=== PATIENT | male | born 1960 | race Hispanic/Latino ===

== ENCOUNTER 2018-10-23 10:09 | Emergency (ER) | payer SELFPAY ==
[2018-10-23 12:07] LABS: Absolute Lymphocytes (CBC) 1.5 K/uL (0.7-4.9); Absolute Monocytes 0.7 K/uL (0.1-1.3); Absolute Neutrophil 9.3 K/uL (1.8-8.0); Basophils % 0.4 % (0-1.3); Eosinophils % 1.5 % (0-4.4); Hematocrit 39.2 % (39.6-49.0); Lymphocytes % 12.5 % (15.3-44.8); MPV 8.1 fL (7.6-11.3); Monocytes % 5.9 % (3.3-12.3); RBC Red Blood Cell Count 4.37 M/uL (4.33-5.43)
[2018-10-23 12:12] LABS: Urine Blood 3+ (NEG); Urine Glucose NEGATIVE (NEG); Urine Protein NEGATIVE (NEG); Urine pH 5.5 (5.0-7.0)
[2018-10-23 12:12] LABS: Urine Bacteria <20 /HPF (NONE SEEN); Urine Culture Reflex Order REFLEXED; Urine Mucus 1+ /HPF (NONE SEEN); Urine RBC 20-50 /HPF (NONE SEEN)
[2018-10-23 12:26] LABS: Albumin 3.3 g/dL (3.4-5.0); Bilirubin Direct 0.1 mg/dL (0-0.2); Bilirubin Total 0.5 mg/dL (0.2-1.0); Potassium 5.1 mmol/L (3.5-5.1); Protein, Total 7.7 g/dL (6.4-8.2)
[2018-10-23] MEDS ORDERED: NA CHLORIDE 0.9% 1,000 ML ONE (12:49)
--- NOTE | 2018-10-23 12:52 | RAD REPORT ---
EXAM DESCRIPTION: CT - Abdomen Pelvis Wo Contrast - 10/23/2018 12:38 pm CLINICAL HISTORY: Abdominal pain. iv contrast only;Abd pain COMPARISON: No comparisons TECHNIQUE: CT imaging of the abdomen and pelvis was performed without contrast. Solid organ, bowel a nd vascular assessment is limited due to lack of IV and oral contrast. All CT scans are performed using dose optimization technique as appropriate and may include automated exposure control or mA/KV adjustment according to patient size. FINDINGS: The lower lung bahena are clear. The liver, spleen, pancreas, adrenal glands are within normal limits for a limited non-contrast exami nation. There is quite severe distention of the urinary bladder with a large 3 cm bladder stone noted. The pr ostate gland is significantly prominent and nodular. Mild hydroureter and hydronephrosis is present b ilaterally likely related to the degree of bladder outlet obstruction. A punctate calculus is seen in the upper pole right kidney. No bowel obstruction, free air, free fluid or abscess. The appendix is normal. The osseous structures are within normal limits. IMPRESSION: Severe bladder outlet obstruction is seen, likely related to prostatomegaly. 3 cm bladder stone. Punctate right superior renal calculus. A limited non-contrast examination was performed as detailed.
--- NOTE | 2018-10-23 15:36 | ER ---
Nurse's Notes [facility] Name: Juice Salinas Age: 58 yrs Sex: Male : 1960 Arrival Date: 10/23/2018 Time: 10:12 Bed 5 Private MD: None, None Diagnosis: Acute kidney failure;Bladder outlet obstruction;Calculus in bladder Presentation: 10/23 10:40 Presenting complaint: Patient states: Lower abdominal pain and bloating x 7 days, ph denies fever N/V/D, also denies burning w/ urination but states, " sometimes it's hard to go.". Transition of care: patient was not received from another setting of care. Onset of symptoms was October 23, 2018. Risk Assessment: Do you want to hurt yourself or someone else? Patient reports no desire to harm self or others. Initial Sepsis Screen: Does the patient meet any 2 criteria? No. Patient's initial sepsis screen is negative. Does the patient have a suspected source of infection? No. Patient's initial sepsis screen is negative. Care prior to arrival: None. 10:40 Method Of Arrival: Ambulatory ph 10:40 Acuity: EDITH 3 ph Triage Assessment: 11:50 General: Appears in no apparent distress. uncomfortable, Behavior is calm, cooperative, bp appropriate for age. Pain: Complains of pain in abdomen. GI: Reports lower abdominal pain. Historical: - Allergies: 10:43 No Known Allergies; ph - Home Meds: 10:43 None [Active]; ph - PMHx: 10:43 None; ph - PSHx: 10:43 None; ph - Immunization history:: Adult Immunizations up to date. - Social history:: Smoking status: Patient/guardian denies using tobacco. - Ebola Screening: : Patient negative for fever greater than or equal to 101.5 degrees Fahrenheit, and additional compatible Ebola Virus Disease symptoms Patient denies exposure to infectious person Patient denies travel to an Ebola-affected area in the 21 days before illness onset No symptoms or risks identified at this time. Screenin:51 Abuse screen: Denies threats or abuse. Denies injuries from another. Nutritional bp screening: No deficits noted. Tuberculosis screening: No symptoms or risk factors identified. Fall Risk None identified. Assessment: 11:52 General: Appears in no apparent distress. uncomfortable, Behavior is calm, cooperative, bp appropriate for age. Pain: Complains of pain in abdomen. Neuro: Level of Consciousness is awake, alert, obeys commands, Oriented to person, place, time, situation, Appropriate for age. Cardiovascular: No deficits noted. Respiratory: Airway is patent Respiratory effort is even, unlabored, Respiratory pattern is regular, symmetrical. GI: Bowel sounds present X 4 quads. Abd is soft X 4 quads. : Reports urinary frequency. EENT: No deficits noted. Derm: No deficits noted. Musculoskeletal: Circulation, motion, and sensation intact. Range of motion: intact in all extremities. 13:23 Reassessment: PT TO BE TRANSFERRED FOR URO F/U. ALATORRE CLAMPED AFTER INITIAL 3250 ML OUT.bp 14:36 Reassessment: ALATORRE UNCLAMPED, ADDITIONAL 1200 ML OUTPUT. bp 16:44 Reassessment: EMS AT B/S FOR TRANSPORT. bp Vital Signs: 10:43 BP 150 / 92; Pulse 62; Resp 18; Temp 97.9; Pulse Ox 98% on R/A; Weight 104.33 kg; ph 11:54 BP 133 / 73; Pulse 75; Resp 16; Pulse Ox 99% ; bp 13:19 BP 130 / 71; Pulse 71; Resp 16; Pulse Ox 98% ; bp 14:29 BP 123 / 70; Pulse 59; Resp 14; Pulse Ox 96% ; bp 15:40 BP 127 / 74; Pulse 69; Resp 16; Pulse Ox 98% ; bp ED Course: 10:12 Patient arrived in ED. mr 10:13 None, None is Private Physician. mr 10:41 Triage completed. ph 10:43 Arm band placed on Patient placed in waiting room, Patient notified of wait time. ph 11:28 Jennifer Richardson FNP-C is PHCP. kb 11:28 Caro Spencer MD is Attending Physician. kb 11:36 Misael Payne, OBED is Primary Nurse. bp 11:51 Patient has correct armband on for positive identification. Bed in low position. Call bp light in reach. Side rails up X2. 11:51 Inserted saline lock: 18 gauge in right antecubital area, using aseptic technique. bp Blood collected. 12:32 CT completed. Patient tolerated procedure well. Patient moved to CT via wheelchair. Patient moved back from CT. 12:38 Abdomen In Process Unspecified. EDMS 13:18 Alatorre cath inserted, using sterile technique, [address], balloon inflated, to bp gravity drainage, returned cloudy urine. Patient tolerated well. 16:03 No provider procedures requiring assistance completed. Patient transferred, IV remains bp in place. Administered Medications: 12:10 Drug: NS 0.9% 1000 ml Route: IV; Rate: 1000 ml; Site: right antecubital; bp 13:30 Follow up: IV Status: Completed infusion; IV Intake: 1000ml bp 15:30 Drug: Rocephin - (cefTRIAXone) 1 grams Route: IVPB; Infused Over: 30 mins; Site: right bp antecubital; 16:39 Follow up: IV Status: Completed infusion; IV Intake: 100ml bp Intake: 13:30 IV: 1000ml; Total: 1000ml. bp 16:39 IV: 100ml; Total: 1100ml. bp Output: 13:19 Urine: 3250ml (Alatorre); Total: 3250ml. bp 14:34 Urine: 1200ml (Alatorre); Total: 4450ml. bp 15:39 Urine: 800ml (Alatorre); Total: 5250ml. bp Outcome: 15:34 ER care complete, transfer ordered by . kb 16:00 Transferred by ground EMS to [facility]. bp 16:00 Condition: stable 16:00 Instructed on the need for transfer, no driving heavy equipment. 16:44 Patient left the ED. bp Signatures: Dispatcher [employer] EDMS Jennifer Richardson, ARTEMIO HAASP-Rola Earl Susan sj Hall, Patricia, RN RN Misael Nichole, OBED RN bp
--- NOTE | 2018-10-23 15:36 | EDPHYS ---
Physician Documentation [facility] Name: Juice Salinas Age: 58 yrs Sex: Male : 1960 Arrival Date: 10/23/2018 Time: 10:12 Bed 5 Private MD: None, None ED Physician Caro Spencer HPI: 10/23 13:06 This 58 yrs old Male presents to ER via Ambulatory with complaints of kb Abdominal Pain, Urinary Problem. 13:06 The patient presents with abdominal pain that is diffuse. Onset: The symptoms/episode kb began/occurred 7 day(s) ago. The symptoms do not radiate. Associated signs and symptoms: Pertinent positives: difficulty urinating. The symptoms are described as constant. Modifying factors: The symptoms are alleviated by nothing, the symptoms are aggravated by pressure. Severity of pain: At its worst the pain was moderate in the emergency department the pain is unchanged. The patient has not experienced similar symptoms in the past. The patient has not recently seen a physician. Historical: - Allergies: 10:43 No Known Allergies; ph - Home Meds: 10:43 None [Active]; ph - PMHx: 10:43 None; ph - PSHx: 10:43 None; ph - Immunization history:: Adult Immunizations up to date. - Social history:: Smoking status: Patient/guardian denies using tobacco. - Ebola Screening: : Patient negative for fever greater than or equal to 101.5 degrees Fahrenheit, and additional compatible Ebola Virus Disease symptoms Patient denies exposure to infectious person Patient denies travel to an Ebola-affected area in the 21 days before illness onset No symptoms or risks identified at this time. ROS: 13:06 Constitutional: Negative for fever, chills, and weight loss, Cardiovascular: Negative kb for chest pain, palpitations, and edema, Respiratory: Negative for shortness of breath, cough, wheezing, and pleuritic chest pain, Back: Negative for injury and pain, MS/Extremity: Negative for injury and deformity, Skin: Negative for injury, rash, and discoloration, Neuro: Negative for headache, weakness, numbness, tingling, and seizure. 13:06 Abdomen/GI: Positive for abdominal pain, Negative for nausea, vomiting, and diarrhea, constipation, abdominal cramps, abdominal distension, anorexia. 13:06 : Positive for difficulty urinating. Exam: 13:06 Constitutional: This is a well developed, well nourished patient who is awake, alert, kb and in no acute distress. Head/Face: Normocephalic, atraumatic. Chest/axilla: Normal chest wall appearance and motion. Nontender with no deformity. No lesions are appreciated. Cardiovascular: Regular rate and rhythm with a normal S1 and S2. No gallops, murmurs, or rubs. Normal PMI, no JVD. No pulse deficits. Respiratory: Lungs have equal breath sounds bilaterally, clear to auscultation and percussion. No rales, rhonchi or wheezes noted. No increased work of breathing, no retractions or nasal flaring. Skin: Warm, dry with normal turgor. Normal color with no rashes, no lesions, and no evidence of cellulitis. MS/ Extremity: Pulses equal, no cyanosis. Neurovascular intact. Full, normal range of motion. Neuro: Awake and alert, GCS 15, oriented to person, place, time, and situation. Cranial nerves II-XII grossly intact. Motor strength 5/5 in all extremities. Sensory grossly intact. Cerebellar exam normal. Normal gait. 13:06 Abdomen/GI: Inspection: distension, that is moderate, that is severe, Bowel sounds: normal, in all quadrants, Palpation: moderate abdominal tenderness, mass, that is hard. Vital Signs: 10:43 BP 150 / 92; Pulse 62; Resp 18; Temp 97.9; Pulse Ox 98% on R/A; Weight 104.33 kg; ph 11:54 BP 133 / 73; Pulse 75; Resp 16; Pulse Ox 99% ; bp 13:19 BP 130 / 71; Pulse 71; Resp 16; Pulse Ox 98% ; bp 14:29 BP 123 / 70; Pulse 59; Resp 14; Pulse Ox 96% ; bp 15:40 BP 127 / 74; Pulse 69; Resp 16; Pulse Ox 98% ; bp MDM: 11:29 Patient medically screened. kb 13:30 Data reviewed: vital signs, nurses notes. Data interpreted: Pulse oximetry: on room air kb is 98 %. Interpretation: normal. Counseling: I had a detailed discussion with the patient and/or guardian regarding: the historical points, exam findings, and any diagnostic results supporting the discharge/admit diagnosis, lab results, radiology results, the need to transfer to another facility, [facility] does not immediately have the required specialist. 15:13 ED course: Discussed pt history, exam and diagnostics with Dr Koenig, [facility]. samantha Accepts consult, would like pt admitted to hospitalist. 15:33 ED course: Discussed history, exam and diagnostic findings with hospitalist, Dr samantha Mak. Accepts pt for transfer. 10/23 11:39 Order name: Basic Metabolic Panel; Complete Time: 12:39 bp 10/23 11:39 Order name: CBC with Diff; Complete Time: 12:24 bp 10/23 11:39 Order name: Creatinine for Radiology; Complete Time: 12:24 bp 10/23 11:39 Order name: Hepatic Function; Complete Time: 12:39 bp 10/23 11:39 Order name: Lipase; Complete Time: 12:39 bp 10/23 11:39 Order name: Urine Microscopic Only; Complete Time: 12:24 bp 10/23 11:39 Order name: IV Saline Lock; Complete Time: 11:50 bp 10/23 11:39 Order name: Labs collected and sent; Complete Time: 11:50 bp 10/23 12:01 Order name: Urine Dipstick--Ancillary (enter results); Complete Time: 12:24 bd 10/23 12:13 Order name: Urine Culture EDNE 10/23 12:29 Order name: Abdomen ; Complete Time: 12:55 EDMS 10/23 11:39 Order name: Urine Dipstick-Ancillary (obtain specimen); Complete Time: 11:50 bp 10/23 13:06 Order name: Zuleta; Complete Time: 13:18 samantha Administered Medications: 12:10 Drug: NS 0.9% 1000 ml Route: IV; Rate: 1000 ml; Site: right antecubital; bp 13:30 Follow up: IV Status: Completed infusion; IV Intake: 1000ml bp 15:30 Drug: Rocephin - (cefTRIAXone) 1 grams Route: IVPB; Infused Over: 30 mins; Site: right bp antecubital; 16:39 Follow up: IV Status: Completed infusion; IV Intake: 100ml bp Disposition: 10/23/18 15:34 Transfer ordered to [facility]. Diagnosis are Acute kidney failure, Bladder outlet obstruction, Calculus in bladder. - Reason for transfer: Higher level of care. - Accepting physician is Aubree. - Condition is Stable. - Problem is new. - Symptoms have improved. Addendum: 10/25/2018 15:29 Co-signature as Attending Physician, Caro Spencer MD. m a2 Signatures: Dispatcher [employer] EDNE Jennifer Richardson, COOK SUPERVISOR-C COOK SUPERVISOR-CkSasha Kramer, RN RN Misael Payne, RN RN bp Caro Spencer MD MD ma2 Corrections: (The following items were deleted from the chart) 10/23 12:29 11:59 Abdomen Pelvis W Con+CT.RAD.BRZ ordered. [facility] 16:44 15:34 10/23/2018 15:34 Transfer ordered to [facility]. Diagnosis is bp Acute kidney failure; Bladder outlet obstruction; Calculus in bladder. Reason for transfer: Higher level of care. Accepting physician is Aubree. Condition is Stable. Problem is new. Symptoms have improved. kb
[2018-10-23] MEDS ORDERED: CEFTRIAXONE 1000 MG/VIAL ONE (15:41)
[2018-10-23] MEDS ORDERED: NA CHLORIDE 0.9% 100 ML IV ONE (15:41)
== END 2018-10-23 16:44 | disposition short-term general hospital (02) ==
LOC: ER 10:09
DX: N17.9 Acute kidney failure, unspecified (principal); N32.0 Bladder-neck obstruction; N21.0 Calculus in bladder
CPT/HCPCS: 36415; 51702; 74176; 80048; 80076; 81003; 81015; 83690; 85025; 87086; 87088; 96361; 96365; 99285; J7030

== ENCOUNTER 2018-11-26 09:41 | Day surgery (SDC) | payer SELFPAY ==
--- NOTE | 2018-11-24 16:06 | RAD REPORT ---
EXAM DESCRIPTION: RAD - Chest Pa And Lat (2 Views) - 11/24/2018 3:31 pm CLINICAL HISTORY: Preop chest, pending calculus removal COMPARISON: None. TECHNIQUE: PA and lateral views of the chest were obtained. FINDINGS: The lungs are clear of an acute infiltrate, mass or failure finding. Scarring changes are present along with a few calcified granulomas. Heart size is normal and central vasculature is with in normal limits. No pleural effusion or pneumothorax seen. No acute bony finding noted. No aortic abnormality. IMPRESSION: Mild chronic interstitial lung disease. No acute cardiopulmonary finding.
[2018-11-24 16:32] LABS: Urine Appearance CLOUDY; Urine Bilirubin NEGATIVE (NEG); Urine Blood 3+ (NEG); Urine Color YELLOW; Urine Glucose NEGATIVE (NEG); Urine Protein TRACE (NEG); Urine Urobilinogen 0.2 mg/dL (0.2-1.0); Urine pH 6.5 (5.0-7.0)
[2018-11-24 16:38] LABS: Protime INR 0.97
[2018-11-24 16:39] LABS: Absolute Lymphocytes (CBC) 2.2 K/uL (0.7-4.9); Absolute Monocytes 0.6 K/uL (0.1-1.3); Absolute Neutrophil 7.5 K/uL (1.8-8.0); Basophils % 0.4 % (0-1.3); Eosinophils % 7.2 % (0-4.4); Hematocrit 39.4 % (39.6-49.0); Lymphocytes % 19.7 % (15.3-44.8); MPV 8.4 fL (7.6-11.3); Monocytes % 5.4 % (3.3-12.3); RBC Red Blood Cell Count 4.38 M/uL (4.33-5.43)
[2018-11-24 16:46] LABS: Urine Microscopic Reflex ORDER UMIC
[2018-11-24 17:03] LABS: Potassium 3.9 mmol/L (3.5-5.1)
[2018-11-24 17:51] LABS: Urine Bacteria <20 /HPF (NONE SEEN); Urine RBC 20-50 /HPF (NONE SEEN)
[2018-11-24 17:52] LABS: Urine Culture Reflex Order NOT NEEDED; Urine Mucus 1+ /HPF (NONE SEEN)
--- NOTE | 2018-11-24 20:49 | EKG ---
Test Date: 2018-11-24 Test Time: 15:12:14 Anesthesiology Teacher: ARLET MEASUREMENT RESULTS: Intervals: Rate: 67 AL: 180 QRSD: 102 QT: 386 QTc: 407 Cutler: P: 48 AL: 180 QRS: 5 T: 43 INTERPRETIVE STATEMENTS: Normal sinus rhythm Incomplete right bundle branch block Borderline ECG No previous ECG available for comparison Electronically Signed On 11-24-18 20:47:41 INVESTMENT COUNSELOR by Demar Wells
--- OUTSIDE RECORDS SUMMARY | 2018-11-26 09:45 | XMS REPORT | Clinical Summary ---
:1960 Author Organization [facility] Address [address] [place] [address] Care Team Providers Name Role Phone Pcp, No Primary Care Provider Unavailable Allergies No Known Allergies Medications Medication Sig Dispensed Refills Start Date End Date Status finasteride (PROSCAR) Take 1 tablet 30 tablet 3 10/26/2018 02/23/2019 Active 5 mg tablet (5 mg total) by mouth daily for 120 days. tamsulosin (FLOMAX) Take 1 capsule 30 capsule 3 10/26/2018 11/25/2018 0.4 mg Cap 24 hr (0.4 mg total) capsule by mouth daily for 30 days. ciprofloxacin HCl Take 1 tablet 14 tablet 0 10/25/2018 11/01/2018 (CIPRO) 500 MG tablet (500 mg total) by mouth 2 (two) times daily for 7 days. Active Problems Problem Noted Date Bladder stone 10/23/2018 Encounters Date Type Specialty Care Team Description 10/23/2018 - Hospital Encounter General Internal Asha, Bladder stone; 10/25/2018 Medicine MD Mariano WILMA (acute kidney injury) (HCC); Mezrawaqas, Urinary retention MD Nanci after 11/25/2017 Immunizations Name Dates Previously Given Next Due Influenza Four-QIV Non-PF 5+ YR 10/24/2018 Social History Tobacco Use Types Packs/Day Years Used Date Never Assessed Sex Assigned at Date Recorded Not on file Job Start Date Occupation Industry Not on file Not on file Not on file Travel History Travel Start Travel End No recent travel history available. Last Filed Vital Signs Vital Sign Reading Time Taken Blood Pressure 107/61 10/25/2018 12:00 PM [employer] Pulse 73 10/25/2018 12:00 PM [employer] Temperature 36.3 C (97.4 F) 10/25/2018 12:00 PM [employer] Respiratory Rate 17 10/25/2018 12:00 PM [employer] Oxygen Saturation 97% 10/25/2018 12:00 PM [employer] Inhaled Oxygen Concentration - - Weight - - Height - - Body Mass Index - - Plan of Treatment Not on file Procedures Procedure Name Priority Date/Time Associated Comments Diagnosis US RENAL COMPLETE Routine 10/25/2018 3:05 Results for this PM [employer] procedure are in the results section. CBC W/PLT COUNT & AUTO Routine 10/25/2018 5:16 Results for this DIFFERENTIAL AM [employer] procedure are in the results section. CBC W/PLT COUNT & AUTO Routine 10/25/2018 5:16 Results for this DIFFERENTIAL AM [employer] procedure are in the results section. MAGNESIUM Routine 10/25/2018 5:16 Results for this AM [employer] procedure are in the results section. BASIC METABOLIC PANEL Routine 10/25/2018 5:16 Results for this (7) AM [employer] procedure are in the results section. CBC W/PLT COUNT & AUTO Routine 10/24/2018 5:13 Results for this DIFFERENTIAL AM [employer] procedure are in the results section. CBC W/PLT COUNT & AUTO Routine 10/24/2018 5:13 Results for this DIFFERENTIAL AM [employer] procedure are in the results section. MAGNESIUM Routine 10/24/2018 5:13 Results for this AM [employer] procedure are in the results section. BASIC METABOLIC PANEL Routine 10/24/2018 5:13 Results for this (7) AM [employer] procedure are in the results section. CBC W/PLT COUNT & AUTO Routine 10/23/2018 8:09 Results for this DIFFERENTIAL PM [employer] procedure are in the results section. MAGNESIUM Routine 10/23/2018 8:09 Results for this PM [employer] procedure are in the results section. COMPREHENSIVE Routine 10/23/2018 8:09 Results for this METABOLIC PANEL PM [employer] procedure are in the results section. CBC W/PLT COUNT & AUTO Routine 10/23/2018 8:09 Results for this DIFFERENTIAL PM [employer] procedure are in the results section. URINALYSIS W/ REFLEX STAT 10/23/2018 8:08 Results for this URINE CULTURE PM [employer] procedure are in the results section. BLOOD CULTURE Routine 10/23/2018 8:08 Results for this PM [employer] procedure are in the results section. BLOOD CULTURE Routine 10/23/2018 8:08 Results for this PM [employer] procedure are in the results section. URINE CULTURE Routine 10/23/2018 8:07 Results for this PM [employer] procedure are in the results section. after 11/25/2017 Results US renal complete (10/25/2018 3:05 PM [employer]) Narrative Performed At FINAL REPORT [facility] Renal ultrasound, 10/25/2018. History:Hydronephrosis. Findings: Sonographic evaluation of the kidneys was performed. Right kidney:11.6 cm in length, normal in size, with cortical thickness of 6.4 cm.Normal cortical echogenicity.No mass.No calculus.No hydronephrosis. Left kidney: 12.1 cm in length, normal in size, with cortical thickness of 1.3 cm.Normal cortical echogenicity.No mass.No calculus.No hydronephrosis. Urinary bladder: The urinary bladder appears unremarkable. A Zuleta catheter is present. The tip of the Zuleta catheter appears to be deep in positioning positioning. Vasculature: Color Doppler survey demonstrates patency of main renal artery and vein bilaterally. Impression: 1. Normal appearance of the kidneys. 2. Deep positioning of Zuleta catheter. Slight retraction may be useful. Signed: Jake Stewart MD Report Verified Date/Time:10/25/2018 16:02:10 Reading Location: [address] Transitional Reading Room Procedure Note Interface, External Ris In - 10/25/2018 4:04 PM [employer] FINAL REPORT Renal ultrasound, 10/25/2018. History: Hydronephrosis. Findings: Sonographic evaluation of the kidneys was performed. Right kidney: 11.6 cm in length, normal in size, with cortical thickness of 6.4 cm. Normal cortical echogenicity. No mass. No calculus. No hydronephrosis. Left kidney: 12.1 cm in length, normal in size, with cortical thickness of 1.3 cm. Normal cortical echogenicity. No mass. No calculus. No hydronephrosis. Urinary bladder: The urinary bladder appears unremarkable. A Zuleta catheter is present. The tip of the Zuleta catheter appears to be deep in positioning positioning. Vasculature: Color Doppler survey demonstrates patency of main renal artery and vein bilaterally. Impression: 1. Normal appearance of the kidneys. 2. Deep positioning of Zuleta catheter. Slight retraction may be useful. Signed: Jake Stewart MD Report Verified Date/Time: 10/25/2018 16:02:10 Reading Location: [address] Transitional Reading Room Performing Organization Address City/State/Zipcode Phone Number GE RIS CBC with platelet count + automated diff (10/25/2018 5:16 AM [employer] MANAGER)Only the most recent of3 resultswithin the time period is included. WBC 9.6 3.5 - 10.5 K/L [facility] RBC 4.09 (L) 4.63 - 6.08 M/L [facility] Hemoglobin 12.5 (L) 13.7 - 17.5 GM/DL [facility] Hematocrit 37.7 (L) 40.1 - 51.0 % [facility] MCV 92.2 79.0 - 92.2 fL [facility] MCH 30.6 25.7 - 32.2 pg [facility] MCHC 33.2 32.3 - 36.5 GM/DL [facility] RDW 12.6 11.6 - 14.4 % [facility] Platelets 240 150 - 450 K/CU MM [facility] MPV 9.8 9.4 - 12.4 fL [facility] nRBC 0 0 - 0 /100 WBC [facility] % Neutros 72 % [facility] % Lymphs 17 % [facility] % Monos 6 % [facility] % Eos 4 % [facility] % Baso 0 % [facility] # Neutros 6.88 (H) 1.78 - 5.38 K/L [facility] # Lymphs 1.66 1.32 - 3.57 K/L [facility] # Monos 0.54 0.30 - 0.82 K/L [facility] # Eos 0.39 0.04 - 0.54 K/L [facility] # Baso 0.03 0.01 - 0.08 K/L [facility] Immature Granulocytes-Relative 1 0 - 1 % [facility] Specimen Blood Performing Organization Address City/State/Zipcode Phone Number [address] [address] CENTER Magnesium (10/25/2018 5:16 AM [employer] MA[employer]GER)Only the most recent of3 resultswithin the time period is included. Magnesium 1.6 1.6 - 2.6 mg/dL [facility] Specimen Blood Performing Organization Address [facility] Phone Number [address] [address] [place] Basic metabolic panel (10/25/2018 5:16 AM [employer] MANAGER)Only the most recent of2 resultswithin the time period is included. Sodium 135 (L) 136 - 145 meq/L [facility] Potassium 4.2 3.5 - 5.1 meq/L [facility] Chloride 105 98 - 107 meq/L [facility] CO2 23 22 - 29 meq/L [facility] BUN 17 7 - 21 mg/dL [facility] Creatinine 1.23 0.57 - 1.25 mg/dL [facility] Glucose 85 70 - 105 mg/dL [facility] Calcium 8.0 (L) 8.4 - 10.2 mg/dL [facility] EGFR 60Comment: ESTIMATED GFR IS mL/min/1.73 sq m [facility] NOT ACCURATE [facility] CLEARANCE IN PREDICTING GLOMERULAR FILTRATION RATE. ESTIMATED GFR IS NOT APPLICABLE FOR DIALYSIS PATIENTS. Specimen Blood Performing Organization Address City/State/Zipcode Phone Number [facility] [address] [place], [place] [phone] [place] Comprehensive metabolic panel (10/23/2018 8:09 PM [employer]GER) Protein, Total 7.0 6.0 - 8.3 gm/dL [facility] Albumin 3.5 3.5 - 5.0 g/dL [facility] Alkaline Phosphatase 88 40 - 150 U/L [facility] Total Bilirubin 0.5 0.2 - 1.2 mg/dL [facility] Sodium 143 136 - 145 meq/L [facility] Potassium 4.7 3.5 - 5.1 meq/L [facility] Chloride 107 98 - 107 meq/L [facility] CO2 28 22 - 29 meq/L [facility] BUN 33 (H) 7 - 21 mg/dL [facility] Creatinine 1.98 (H) 0.57 - 1.25 mg/dL [facility] Glucose 93 70 - 105 mg/dL [facility] Calcium 8.6 8.4 - 10.2 mg/dL [facility] AST 22 5 - 34 U/L [facility] ALT 26 6 - 55 U/L [facility] EGFR 35Comment: ESTIMATED GFR mL/min/1.73 sq m [facility] IS NOT ACCURATE [facility] CREATININE CLEARANCE IN PREDICTING GLOMERULAR FILTRATION RATE. ESTIMATED GFR IS NOT APPLICABLE FOR DIALYSIS PATIENTS. Specimen Blood - Arm, Left Performing Organization Address City/State/Zipcode Phone Number [facility] [address] [place] [address] [phone] [place] Urinalysis w/Microscopic + Reflex to Culture (10/23/2018 8:08 PM [employer]GER) Color, UA Light Yellow [facility] Clarity, UA Clear [facility] Specific [place], UA 1.006 1.001 - 1.035 [facility] pH, UA 7.5 5.0 - 8.0 [facility] Protein, UA 10 mg/dL (A) Negative [facility] Glucose, UA Negative Negative [facility] Ketones, UA Negative Negative [facility] Bilirubin, UA Negative Negative [facility] Blood, UA Moderate (A) Negative [facility] Nitrite, UA Negative Negative [facility] Leukocytes, UA Moderate (A) Negative [facility] Urobilinogen, UA 0.2 0.2 - 1.0 mg/dL [facility] RBC, UA 77 /HPF [facility] WBC, UA 4 /HPF [facility] Bacteria, UA Occasional [facility] Mucus Rare [facility] Squam Epithel, UA <1 /HPF [facility] Specimen Source [facility] Specimen Urine - Urine, Zuleta Performing Organization Address [facility] Phone Number [facility] [address] [place] [phone] [place] Blood culture #2 (10/23/2018 8:08 PM M[employer] MANAGER)Only the most recent of2 resultswithin the time period is included. Result No growth in 5 days [facility] Specimen Blood - Arm, Left Performing Organization Address [facility] Phone Number [facility] [address] [place] [address] [phone] [place] Urine culture (10/23/2018 8:07 PM [employer] MA[employer]GER) Result No growth [facility] Specimen Urine - Urine, Zuleta Performing Organization Address City/[facility] Phone Number [facility] [address] [place] [address] CENTER after 11/25/2017 Advance Directives For more information, please contact:[facility], [place] [phone] Code Status Date Activated Date Inactivated Comments Full Code 10/23/2018 6:41 PM This code status was determined by: Patient Name Relationship Healthcare Agent Relationship Phone Sonido Salinas Natural son First alternate healthcare agent [phone]
--- OUTSIDE RECORDS SUMMARY | 2018-11-26 09:46 | XMS REPORT ---
:1960 [facility] Address [address] [place] [address] Care Team Providers Name Role Phone GIFTY SPARKS Unavailable Unavailable Problems This patient has no known problems. Allergies, Adverse Reactions, Alerts This patient has no known allergies or adverse reactions. Medications This patient has no known medications. Results Test Description Test Time Test Comments Text Results Atomic Results Result Comments BLOOD CULTURE 2018-10-29 01:01:00 Test Item Value Reference Range Comments CULTURE (BEAKER) (test bnyf=4384) No growth in 5 days BLOOD [id number] 01:01:00 Test Item Value Reference Range Comments CULTURE (BEAKER) (test uiuj=9189) No growth in 5 days URINE [id number] 16:43:00 Test Item Value Reference Range Comments CULTURE (BEAKER) (test cpin=6679) No growth U/S, RENAL, [id number] 16:02:00Reason for exam:->check for hydronephrosisFINAL REPORT Renal ultrasound, 2017. History: Hydronephrosis. Findings:Sonographic evaluation of the kidneys was performed. Right [...] Color Doppler survey demonstrates patency of main renalartery and vein bilaterally. Impression:1. Normal appearance of the kidneys.2. Deep positioning of Zuleta catheter. Slight retraction may be useful. Signed: Lynette Stewart MDReport Verified Date/Time:10/25/2018 16:02:10 Reading Location: [address] Transitional Reading Room [facility] METABOLIC [id number] 07:23:00 Test Item Value Reference Range Comments SODIUM (BEAKER) (test 135 meq/L 136-145 hvwm=517) POTASSIUM (BEAKER) (test 4.2 meq/L 3.5-5.1 dste=924) CHLORIDE (BEAKER) (test 105 meq/L 98-107 cqzs=146) CO2 (BEAKER) (test 23 meq/L 22-29 tdbr=194) BLOOD UREA NITROGEN 17 mg/dL 7-21 (BEAKER) (test lkpe=380) CREATININE (BEAKER) (test 1.23 mg/dL 0.57-1.25 jjcd=002) GLUCOSE RANDOM (BEAKER) 85 mg/dL 70-105 (test zqyb=162) CALCIUM (BEAKER) (test 8.0 mg/dL 8.4-10.2 umuh=029) EGFR (BEAKER) (test 60 mL/min/1.73 sq m ESTIMATED GFR IS NOT skth=1704) ACCURATE CREATININE CLEARANCE IN PREDICTING GLOMERULAR FILTRATION RATE. ESTIMATED GFR IS NOT APPLICABLE FOR DIALYSIS PATIENTS. [id number] 07:14:00 Test Item Value Reference Range Comments MAGNESIUM (BEAKER) (test jrvc=887) 1.6 mg/dL 1.6-2.6 CBC W/PLT COUNT & AUTO [id number] 06:50:00 Test Item Value Reference Range Comments WHITE BLOOD CELL COUNT (BEAKER) (test fpwf=912) 9.6 K/ L 3.5-10.5 RED BLOOD CELL COUNT (BEAKER) (test tdpz=671) 4.09 M/ L 4.63-6.08 HEMOGLOBIN (BEAKER) (test kelx=351) 12.5 GM/DL 13.7-17.5 HEMATOCRIT (BEAKER) (test yvvm=373) 37.7 % 40.1-51.0 MEAN CORPUSCULAR VOLUME (BEAKER) (test yomf=927) 92.2 fL 79.0-92.2 MEAN CORPUSCULAR HEMOGLOBIN (BEAKER) (test 30.6 pg 25.7-32.2 naob=047) MEAN CORPUSCULAR HEMOGLOBIN CONC (BEAKER) (test 33.2 GM/DL 32.3-36.5 gytc=361) RED CELL DISTRIBUTION WIDTH (BEAKER) (test 12.6 % 11.6-14.4 hvan=718) PLATELET COUNT (BEAKER) (test rbva=924) 240 K/CU MM 150-450 MEAN PLATELET VOLUME (BEAKER) (test ztat=263) 9.8 fL 9.4-12.4 NUCLEATED RED BLOOD CELLS (BEAKER) (test 0 /100 WBC 0-0 ptmc=169) NEUTROPHILS RELATIVE PERCENT (BEAKER) (test 72 % njvu=485) LYMPHOCYTES RELATIVE PERCENT (BEAKER) (test 17 % eysn=139) MONOCYTES RELATIVE PERCENT (BEAKER) (test 6 % koyx=963) EOSINOPHILS RELATIVE PERCENT (BEAKER) (test 4 % cmvx=521) BASOPHILS RELATIVE PERCENT (BEAKER) (test 0 % acyv=960) NEUTROPHILS ABSOLUTE COUNT (BEAKER) (test 6.88 K/ L 1.78-5.38 kroh=742) LYMPHOCYTES ABSOLUTE COUNT (BEAKER) (test 1.66 K/ L 1.32-3.57 kgdl=332) MONOCYTES ABSOLUTE COUNT (BEAKER) (test 0.54 K/ L 0.30-0.82 uqka=380) EOSINOPHILS ABSOLUTE COUNT (BEAKER) (test 0.39 K/ L 0.04-0.54 tigt=376) BASOPHILS ABSOLUTE COUNT (BEAKER) (test 0.03 K/ L 0.01-0.08 lmfk=886) IMMATURE GRANULOCYTES-RELATIVE PERCENT (BEAKER) 1 % 0-1 (test phls=4474) [id number] 06:14:00 Test Item Value Reference Range Comments MAGNESIUM (BEAKER) (test dqas=592) 2.2 mg/dL 1.6-2.6 BASIC METABOLIC [id number] 06:14:00 Test Item Value Reference Range Comments SODIUM (BEAKER) (test 144 meq/L 136-145 vxmn=323) POTASSIUM (BEAKER) (test 4.6 meq/L 3.5-5.1 eiuu=857) CHLORIDE (BEAKER) (test 110 meq/L 98-107 gfgo=662) CO2 (BEAKER) (test 26 meq/L 22-29 nryk=137) BLOOD UREA NITROGEN 27 mg/dL 7-21 (BEAKER) (test fqmy=539) CREATININE (BEAKER) (test 1.63 mg/dL 0.57-1.25 dyza=891) GLUCOSE RANDOM (BEAKER) 92 mg/dL 70-105 (test qthu=297) CALCIUM (BEAKER) (test 8.5 mg/dL 8.4-10.2 jznv=296) EGFR (BEAKER) (test 44 mL/min/1.73 sq m ESTIMATED GFR IS NOT zcbq=1855) ACCURATE CREATININE CLEARANCE IN PREDICTING GLOMERULAR FILTRATION RATE. ESTIMATED GFR IS NOT APPLICABLE FOR DIALYSIS PATIENTS. CBC W/PLT COUNT & AUTO [id number] 05:44:00 Test Item Value Reference Range Comments WHITE BLOOD CELL COUNT (BEAKER) (test wtuh=694) 9.4 K/ L 3.5-10.5 RED BLOOD CELL COUNT (BEAKER) (test mfew=194) 4.14 M/ L 4.63-6.08 HEMOGLOBIN (BEAKER) (test abog=582) 12.6 GM/DL 13.7-17.5 HEMATOCRIT (BEAKER) (test jpiy=637) 38.4 % 40.1-51.0 MEAN CORPUSCULAR VOLUME (BEAKER) (test imcd=285) 92.8 fL 79.0-92.2 MEAN CORPUSCULAR HEMOGLOBIN (BEAKER) (test 30.4 pg 25.7-32.2 aeul=867) MEAN CORPUSCULAR HEMOGLOBIN CONC (BEAKER) (test 32.8 GM/DL 32.3-36.5 qzop=225) RED CELL DISTRIBUTION WIDTH (BEAKER) (test 13.0 % 11.6-14.4 fwtr=397) PLATELET COUNT (BEAKER) (test vyqc=269) 264 K/CU MM 150-450 MEAN PLATELET VOLUME (BEAKER) (test jgqt=878) 9.4 fL 9.4-12.4 NUCLEATED RED BLOOD CELLS (BEAKER) (test 0 /100 WBC 0-0 fugv=453) NEUTROPHILS RELATIVE PERCENT (BEAKER) (test 74 % puol=174) LYMPHOCYTES RELATIVE PERCENT (BEAKER) (test 17 % jzhd=466) MONOCYTES RELATIVE PERCENT (BEAKER) (test 7 % tjox=286) EOSINOPHILS RELATIVE PERCENT (BEAKER) (test 2 % uflf=363) BASOPHILS RELATIVE PERCENT (BEAKER) (test 0 % yigj=986) NEUTROPHILS ABSOLUTE COUNT (BEAKER) (test 6.89 K/ L 1.78-5.38 wpgt=374) LYMPHOCYTES ABSOLUTE COUNT (BEAKER) (test 1.59 K/ L 1.32-3.57 lbdh=721) MONOCYTES ABSOLUTE COUNT (BEAKER) (test 0.65 K/ L 0.30-0.82 yiqb=311) EOSINOPHILS ABSOLUTE COUNT (BEAKER) (test 0.19 K/ L 0.04-0.54 fkbj=639) BASOPHILS ABSOLUTE COUNT (BEAKER) (test 0.03 K/ L 0.01-0.08 bvda=791) IMMATURE GRANULOCYTES-RELATIVE PERCENT (BEAKER) 0 % 0-1 (test hwtc=1805) [id number] 20:38:00 Test Item Value Reference Range Comments MAGNESIUM (BEAKER) (test zhfl=958) 2.5 mg/dL 1.6-2.6 COMPREHENSIVE METABOLIC [id number] 20:38:00 Test Item Value Reference Range Comments TOTAL PROTEIN (BEAKER) 7.0 gm/dL 6.0-8.3 (test mvvh=395) ALBUMIN (BEAKER) (test 3.5 g/dL 3.5-5.0 ouij=1336) ALKALINE PHOSPHATASE 88 U/L 40-150 (BEAKER) (test ebmm=685) BILIRUBIN TOTAL (BEAKER) 0.5 mg/dL 0.2-1.2 (test emor=932) SODIUM (BEAKER) (test 143 meq/L 136-145 fjvm=517) POTASSIUM (BEAKER) (test 4.7 meq/L 3.5-5.1 mmba=595) CHLORIDE (BEAKER) (test 107 meq/L 98-107 yldh=809) CO2 (BEAKER) (test 28 meq/L 22-29 jdxg=700) BLOOD UREA NITROGEN 33 mg/dL 7-21 (BEAKER) (test ajcz=886) CREATININE (BEAKER) (test 1.98 mg/dL 0.57-1.25 iwxv=117) GLUCOSE RANDOM (BEAKER) 93 mg/dL 70-105 (test sbcr=119) CALCIUM (BEAKER) (test 8.6 mg/dL 8.4-10.2 rxvf=060) AST (SGOT) (BEAKER) (test 22 U/L 5-34 keey=092) ALT (SGPT) (BEAKER) (test 26 U/L 6-55 bmou=187) EGFR (BEAKER) (test 35 mL/min/1.73 sq m ESTIMATED GFR IS NOT tnkc=6940) ACCURATE CREATININE CLEARANCE IN PREDICTING GLOMERULAR FILTRATION RATE. ESTIMATED GFR IS NOT APPLICABLE FOR DIALYSIS PATIENTS. URINALYSIS W/ REFLEX URINE [id number] 20:27:00 Test Item Value Reference Range Comments COLOR (BEAKER) (test lrtj=133) Light Yellow CLARITY (BEAKER) (test bdez=468) Clear SPECIFIC GRAVITY UA (BEAKER) (test hzwg=681) 1.006 1.001-1.035 PH UA (BEAKER) (test nhwy=068) 7.5 5.0-8.0 PROTEIN UA (BEAKER) (test hyyd=454) 10 mg/dL Negative GLUCOSE UA (BEAKER) (test wcvf=147) Negative Negative KETONES UA (BEAKER) (test gcen=740) Negative Negative BILIRUBIN UA (BEAKER) (test lctu=419) Negative Negative BLOOD UA (BEAKER) (test kexs=504) Moderate Negative NITRITE UA (BEAKER) (test ynda=835) Negative Negative LEUKOCYTE ESTERASE UA (BEAKER) (test iete=541) Moderate Negative UROBILINOGEN UA (BEAKER) (test gxlq=848) 0.2 mg/dL 0.2-1.0 RBC UA (BEAKER) (test cvtm=904) 77 /HPF WBC UA (BEAKER) (test zapr=306) 4 /HPF BACTERIA (BEAKER) (test ymqs=292) Occasional MUCUS (BEAKER) (test nguj=5878) Rare SQUAMOUS EPITHELIAL (BEAKER) (test snyo=809) < /HPF SOURCE(BEAKER) (test ecjz=5517) CBC W/PLT COUNT & AUTO [id number] 20:22:00 Test Item Value Reference Range Comments WHITE BLOOD CELL COUNT (BEAKER) (test iqmd=533) 10.0 K/ L 3.5-10.5 RED BLOOD CELL COUNT (BEAKER) (test ojzl=084) 4.19 M/ L 4.63-6.08 HEMOGLOBIN (BEAKER) (test ycgq=864) 13.0 GM/DL 13.7-17.5 HEMATOCRIT (BEAKER) (test olsj=267) 38.6 % 40.1-51.0 MEAN CORPUSCULAR VOLUME (BEAKER) (test xhas=908) 92.1 fL 79.0-92.2 MEAN CORPUSCULAR HEMOGLOBIN (BEAKER) (test 31.0 pg 25.7-32.2 jtvp=947) MEAN CORPUSCULAR HEMOGLOBIN CONC (BEAKER) (test 33.7 GM/DL 32.3-36.5 jsbx=140) RED CELL DISTRIBUTION WIDTH (BEAKER) (test 12.8 % 11.6-14.4 lhlm=571) PLATELET COUNT (BEAKER) (test udzb=776) 246 K/CU MM 150-450 MEAN PLATELET VOLUME (BEAKER) (test xksv=095) 9.5 fL 9.4-12.4 NUCLEATED RED BLOOD CELLS (BEAKER) (test 0 /100 WBC 0-0 kbdd=045) NEUTROPHILS RELATIVE PERCENT (BEAKER) (test 71 % jceg=476) LYMPHOCYTES RELATIVE PERCENT (BEAKER) (test 18 % gfwi=237) MONOCYTES RELATIVE PERCENT (BEAKER) (test 9 % tfen=032) EOSINOPHILS RELATIVE PERCENT (BEAKER) (test 2 % xwcd=321) BASOPHILS RELATIVE PERCENT (BEAKER) (test 1 % zxtr=209) NEUTROPHILS ABSOLUTE COUNT (BEAKER) (test 7.09 K/ L 1.78-5.38 ikni=890) LYMPHOCYTES ABSOLUTE COUNT (BEAKER) (test 1.74 K/ L 1.32-3.57 peaq=417) MONOCYTES ABSOLUTE COUNT (BEAKER) (test 0.85 K/ L 0.30-0.82 ohdt=796) EOSINOPHILS ABSOLUTE COUNT (BEAKER) (test 0.21 K/ L 0.04-0.54 ulna=429) BASOPHILS ABSOLUTE COUNT (BEAKER) (test 0.05 K/ L 0.01-0.08 okmb=661) IMMATURE GRANULOCYTES-RELATIVE PERCENT (BEAKER) 0 % 0-1 (test zhwd=6509)
[2018-11-26] MEDS ORDERED: Ringers Lactate 1,000 ML IV ONE ×2 (10:03→15:00)
[2018-11-26] MEDS ORDERED: VANCOMYCIN 1 GM/250 ML BAG ONE (10:03)
[2018-11-26] MEDS ORDERED: LIDOCAINE 2% MPF 5 ML VIAL ONE (10:54)
[2018-11-26] MEDS ORDERED: PROPOFOL 200 MG/20 ML VIAL IV ONE (10:54)
[2018-11-26] MEDS ORDERED: MIDAZOLAM HCL 2 MG/2 ML INJ ONE ×2 (10:54→11:27)
[2018-11-26] MEDS ORDERED: FENTANYL CITR 250 MCG/5 ML ONE (10:54)
[2018-11-26] MEDS ORDERED: GENTAMICIN 100 MG/100 ML BAG 100 ML IV ONE (11:59)
[2018-11-26] MEDS ORDERED: EPHEDRINE SULF 50 MG/ML VIAL ONE (12:42)
[2018-11-26] MEDS ORDERED: METHYLENE BLUE 0.5% 10 ML AMP ONE (14:15)
[2018-11-26] MEDS ORDERED: FENTANYL CITR 100 MCG/2 ML ONE (14:21)
[2018-11-26] MEDS ORDERED: FUROSEMIDE 20 MG/ 2ML VIAL ONE (14:59)
== END 2018-11-26 16:48 | disposition home or self-care (01) ==
LOC: PRE 09:41
PROVIDERS: ATTEND Urology
PROC: 0TCB8ZZ Extirpation of Matter from Bladder, Via Natural or Artificial Opening Endoscopic (ICD-10-PCS; principal; 2018-11-26 12:00)
PROC: 0VT08ZZ Resection of Prostate, Via Natural or Artificial Opening Endoscopic (ICD-10-PCS; 2018-11-26 12:00)
DX: N40.1 Benign prostatic hyperplasia with lower urinary tract symptoms (principal); N21.0 Calculus in bladder; D29.1 Benign neoplasm of prostate; R33.8 Other retention of urine; R39.12 Poor urinary stream; N42.9 Disorder of prostate, unspecified; N39.0 Urinary tract infection, site not specified; R97.20 Elevated prostate specific antigen [PSA]; Z91.19 Patient's noncompliance with other medical treatment and regimen
CPT/HCPCS: 36415; 71046; 80048; 81003; 81015; 82360; 85025; 85610; 85730; 87077; 87086; 87088; 87186; 88300; 88305; 93005; J1580; J1940; J2250; J2704; J3010; J3370